=== PATIENT | female | born 1980 | race Caucasian/White ===

== ENCOUNTER 2024-02-25 15:34 | Emergency (ER) | payer MEDICAID ==
[2024-02-25] MEDS: Ketorolac 15 MG/ML SDV IVPUSH ONE (16:33)
[2024-02-25 16:34] LABS: BASOPHILS ABSOLUTE AUTO 0.05 K/uL (0.00-0.10); BASOPHILS PERCENT AUTO 0.7 % (0.1-1.3); EOSINOPHILS ABSOLUTE AUTO 0.15 K/uL (0.00-0.40); EOSINOPHILS PERCENT AUTO 2.2 % (0.0-5.4); HEMATOCRIT 39.8 % (34.3-46.0); HEMOGLOBIN 14.3 g/dL (11.2-15.5); IMMATURE GRAN ABSOLUTE AUTO 0.03 K/uL (0.00-0.23); IMMATURE GRAN PERCENT AUTO 0.4 % (0.0-0.7); LYMPHOCYTES ABSOLUTE AUTO 1.76 K/uL (0.8-3.3); MEAN CORPUSCULAR HEMOGLOBIN 31.8 pg (31.6-35.5); MEAN CORPUSCULAR HGB CONC 35.9 g/dL (31.6-35.5); MEAN CORPUSCULAR VOLUME 88.6 fL (81.4-99.0); MONOCYTES ABSOLUTE AUTO 0.48 K/uL (0.20-0.90); MONOCYTES PERCENT AUTO 7.1 % (3.3-12.6); NEUTROPHILS ABSOLUTE AUTO 4.29 K/uL (1.0-7.6); NEUTROPHILS PERCENT AUTO 63.6 % (40.0-78.1); PLATELET COUNT,PLT 203 K/uL (130-375); RED BLOOD CELL COUNT 4.49 M/uL (3.77-5.24); WHITE BLOOD CELL COUNT,WBC 6.8 K/uL (3.2-11.0)
[2024-02-25] MEDS: Sodium Chloride 0.9% 10 ML Syringe FLUSH PRN (16:34)
[2024-02-25 16:56] LABS: A/G RATIO 1.2 (1.2-2.2); ALANINE AMINOTRANSFERASE,ALT 27 U/L (12-78); ALBUMIN 3.9 g/dL (3.4-5.0); ALKALINE PHOSPHATASE 42 U/L (46-116); ANION GAP 9.3 mmol/L (5.0-14.0); ASPARTATE AMNIOTRANSFERASE,AST 29 U/L (15-37); BLOOD UREA NITROGEN,BUN 16 mg/dL (7-18); CALCIUM 9.2 mg/dL (8.5-10.1); CARBON DIOXIDE,CO2 28 mmol/L (21-32); CHLORIDE,CL 104 mmol/L (100-108); CREATININE 0.8 mg/dL (0.6-1.0); EST CRCL DRUG DOSING (CG) 81.59 mL/min; ESTIMATED GFR 94 mL/min (>60); GLUCOSE RANDOM 84 mg/dL (74-106); MAGNESIUM 1.9 mg/dL (1.8-2.4); POTASSIUM,K 4.1 mmol/L (3.6-5.2); PROTEIN TOTAL,TP 7.2 g/dL (6.4-8.2); SODIUM,NA 141 mmol/L (140-148)
[2024-02-25 16:57] LABS: C-REACTIVE PROTEIN < 0.50 mg/dL (<0.50); TROPONIN I HIGH SENSITIVITY 96.3 pg/mL (<=60.3)
[2024-02-25 17:44] LABS: APPEARANCE,URINE SLIGHTLY CLOUDY (CLEAR); BILIRUBIN,URINE NEGATIVE (NEGATIVE); COLOR,URINE YELLOW (YELLOW); GLUCOSE,URINE NEGATIVE (NEGATIVE); KETONES,URINE NEGATIVE (NEGATIVE); LEUKOCYTE ESTERASE,URINE NEGATIVE (NEGATIVE); NITRITE,URINE NEGATIVE (NEGATIVE); OCCULT BLOOD,URINE TRACE-INTACT (NEGATIVE); PH,URINE 5.5 (5.0-8.0); PROTEIN,URINE NEGATIVE (NEGATIVE); UROBILINOGEN,URINE 0.2 EU/dL (0.2-1.0)
[2024-02-25 17:48] LABS: AMPHETAMINES SCREEN, URINE NEGATIVE (NEGATIVE); BARBITURATE SCREEN,URINE NEGATIVE (NEGATIVE); BENZODIAZEPINES SCREEN,URINE NEGATIVE (NEGATIVE); METHADONE SCREEN, URINE NEGATIVE (NEGATIVE); METHAMPHETAMINES SCREEN, URINE NEGATIVE (NEGATIVE); OXYCODONE SCREEN,URINE NEGATIVE (NEGATIVE); PROPOXYPHENE SCREEN,URINE NEGATIVE (NEGATIVE); THC SCREEN,URINE 50 NG/ML PRESUMPTIVE POSITIVE (NEGATIVE)
[2024-02-25 17:49] LABS: AMORPHOUS SEDIMENT,URINE NOT SEEN; RBC,URINE 0-5 (0-5); WBC,URINE 0-5 (0-5)
[2024-02-25 17:50] LABS: BACTERIA,URINE RARE; EPITHELIAL CELLS,URINE MODERATE; MUCUS,URINE MODERATE
[2024-02-25] MEDS: Iopamidol 755 Mg/ML 100 ML Bottle IV ONE (19:22)
[2024-02-25] MEDS: Sodium Chloride 0.9% 100 ML IV ONE (19:22)
[2024-02-25] MEDS: Sodium Chloride 0.9% 10 ML Syringe FLUSH ONE (19:22)
[2024-02-25] MEDS: Ketorolac 30 MG/ML SDV IVPUSH ONE (21:38)
== END 2024-02-25 22:00 | disposition home or self-care (01) ==
LOC: JP.ED 15:34
DX: S60.211A Contusion of right wrist, initial encounter (principal); S30.0XXA Contusion of lower back and pelvis, initial encounter; I25.2 Old myocardial infarction; F17.210 Nicotine dependence, cigarettes, uncomplicated; Z91.040 Latex allergy status; Z91.011 Allergy to milk products; Z88.8 Allergy status to other drugs, medicaments and biological substances; Z86.16 Personal history of COVID-19; Z79.899 Other long term (current) drug therapy; Z90.49 Acquired absence of other specified parts of digestive tract; Z90.710 Acquired absence of both cervix and uterus; W01.0XXA Fall on same level from slipping, tripping and stumbling without subsequent striking against object, initial encounter; Y93.01 Activity, walking, marching and hiking
CPT/HCPCS: 36415; 71046; 71275; 72100; 73110; 80053; 80305; 80307; 81001; 83735; 84484; 85025; 85379; 86140; 93005; 93010; 96374; 96376; 99284; J1885; J3490; Q9967

== ENCOUNTER 2024-03-03 11:22 | Emergency (ER) | payer SELFPAY ==
[2024-03-03 11:48] LABS: BASOPHILS ABSOLUTE AUTO 0.06 K/uL (0.00-0.10); BASOPHILS PERCENT AUTO 0.5 % (0.1-1.3); EOSINOPHILS ABSOLUTE AUTO 0.16 K/uL (0.00-0.40); EOSINOPHILS PERCENT AUTO 1.4 % (0.0-5.4); HEMATOCRIT 40.4 % (34.3-46.0); HEMOGLOBIN 14.3 g/dL (11.2-15.5); IMMATURE GRAN ABSOLUTE AUTO 0.08 K/uL (0.00-0.23); IMMATURE GRAN PERCENT AUTO 0.7 % (0.0-0.7); LYMPHOCYTES ABSOLUTE AUTO 4.29 K/uL (0.8-3.3); LYMPHOCYTES PERCENT AUTO 37.6 % (11.4-47.7); MEAN CORPUSCULAR HEMOGLOBIN 31.6 pg (31.6-35.5); MEAN CORPUSCULAR HGB CONC 35.4 g/dL (31.6-35.5); MEAN CORPUSCULAR VOLUME 89.2 fL (81.4-99.0); MONOCYTES ABSOLUTE AUTO 0.86 K/uL (0.20-0.90); MONOCYTES PERCENT AUTO 7.5 % (3.3-12.6); NEUTROPHILS ABSOLUTE AUTO 5.95 K/uL (1.0-7.6); NEUTROPHILS PERCENT AUTO 52.3 % (40.0-78.1); PLATELET COUNT,PLT 261 K/uL (130-375); RED BLOOD CELL COUNT 4.53 M/uL (3.77-5.24); WHITE BLOOD CELL COUNT,WBC 11.4 K/uL (3.2-11.0)
[2024-03-03] MEDS: Aspirin 81 MG Tab.Chew PO ONE (11:50)
[2024-03-03] MEDS: Nitroglycerin 0.4 MG Tab.SL SL PRN (11:51)
[2024-03-03 12:10] LABS: A/G RATIO 1.1 (1.2-2.2); ALANINE AMINOTRANSFERASE,ALT 32 U/L (12-78); ALBUMIN 3.9 g/dL (3.4-5.0); ALKALINE PHOSPHATASE 48 U/L (46-116); ANION GAP 11.2 mmol/L (5.0-14.0); ASPARTATE AMNIOTRANSFERASE,AST 19 U/L (15-37); BILIRUBIN TOTAL 0.5 mg/dL (0.2-1.0); BLOOD UREA NITROGEN,BUN 13 mg/dL (7-18); CALCIUM 9.2 mg/dL (8.5-10.1); CARBON DIOXIDE,CO2 27 mmol/L (21-32); CHLORIDE,CL 103 mmol/L (100-108); EST CRCL DRUG DOSING (CG) 65.27 mL/min; ESTIMATED GFR 72 mL/min (>60); GLUCOSE RANDOM 105 mg/dL (74-106); MAGNESIUM 1.9 mg/dL (1.8-2.4); PHOSPHORUS 4.7 mg/dL (2.5-4.9); POTASSIUM,K 3.9 mmol/L (3.6-5.2); PRO B-TYPE NATRIUR PEPT,BNPPRO 2496 pg/mL (5-125); PROTEIN TOTAL,TP 7.3 g/dL (6.4-8.2); SODIUM,NA 141 mmol/L (140-148)
[2024-03-03 12:24] LABS: BASE EXCESS ARTERIAL 1.2 mm/L; CARBOXYHEMOGLOBIN 1.9 % (0.0-1.6); METHEMOGLOBIN 0.8 %; OXYHEMOGLOBIN 92.4 %; PCO2 ARTERIAL 43.4 mmHg (35.0-42.0); PO2 ARTERIAL 80.4 mmHg (75.0-100.0); TOTAL HEMOGLOBIN 17.1 g/dL (12.0-16.0)
[2024-03-03 12:25] LABS: INR 0.9; PROTHROMBIN TIME 9.1 sec (9.2-10.6); PTT,PARTIAL THROMBOPLSTIN TIME 22.5 sec (21.8-27.3)
[2024-03-03 12:51] LABS: APPEARANCE,URINE SLIGHTLY CLOUDY (CLEAR); BILIRUBIN,URINE NEGATIVE (NEGATIVE); COLOR,URINE YELLOW (YELLOW); GLUCOSE,URINE NEGATIVE (NEGATIVE); KETONES,URINE NEGATIVE (NEGATIVE); LEUKOCYTE ESTERASE,URINE NEGATIVE (NEGATIVE); NITRITE,URINE NEGATIVE (NEGATIVE); OCCULT BLOOD,URINE NEGATIVE (NEGATIVE); PROTEIN,URINE NEGATIVE (NEGATIVE); UROBILINOGEN,URINE 0.2 EU/dL (0.2-1.0)
[2024-03-03] MEDS ORDERED: Ticagrelor 90 MG Tab PO ONE (12:58)
[2024-03-03] MEDS ORDERED: Sodium Chloride 0.9% 1,000 ML IV SCH (13:00)
[2024-03-03 13:24] LABS: BACTERIA,URINE NOT SEEN; EPITHELIAL CELLS,URINE FEW; RBC,URINE 0-5 (0-5); WBC,URINE 0-5 (0-5)
[2024-03-03 13:25] LABS: AMORPHOUS SEDIMENT,URINE NOT SEEN; AMPHETAMINES SCREEN, URINE NEGATIVE (NEGATIVE); BARBITURATE SCREEN,URINE NEGATIVE (NEGATIVE); BENZODIAZEPINES SCREEN,URINE NEGATIVE (NEGATIVE); METHADONE SCREEN, URINE NEGATIVE (NEGATIVE); METHAMPHETAMINES SCREEN, URINE NEGATIVE (NEGATIVE); MUCUS,URINE FEW; OXYCODONE SCREEN,URINE NEGATIVE (NEGATIVE); PROPOXYPHENE SCREEN,URINE NEGATIVE (NEGATIVE); THC SCREEN,URINE 50 NG/ML PRESUMPTIVE POSITIVE (NEGATIVE)
== END 2024-03-03 15:10 ==
LOC: JP.ED 11:22
DX: I21.4 Non-ST elevation (NSTEMI) myocardial infarction (principal); I50.9 Heart failure, unspecified; I25.2 Old myocardial infarction; F17.200 Nicotine dependence, unspecified, uncomplicated; Z88.8 Allergy status to other drugs, medicaments and biological substances; Z91.040 Latex allergy status; Z91.011 Allergy to milk products; Z86.19 Personal history of other infectious and parasitic diseases; Z86.16 Personal history of COVID-19
CPT/HCPCS: 36415; 36600; 71045; 80053; 80305; 80307; 81001; 82803; 83605; 83690; 83735; 83880; 84100; 84484; 85025; 85379; 85610; 85730; 99285; A9270; 93005; 93010

== ENCOUNTER 2024-07-19 19:36 | Emergency (ER) | payer MEDICAID ==
[2024-07-19] MEDS: Lidocaine 1% with EPINEPHrine 1:100,000 50 ML MDV SUBCUT STA (20:20)
== END 2024-07-19 20:30 | disposition home or self-care (01) ==
LOC: JP.ED 19:36
DX: L76.22 Postprocedural hemorrhage of skin and subcutaneous tissue following other procedure (principal); S21.112D Laceration without foreign body of left front wall of thorax without penetration into thoracic cavity, subsequent encounter; I50.9 Heart failure, unspecified; I25.2 Old myocardial infarction; F17.210 Nicotine dependence, cigarettes, uncomplicated; Z86.16 Personal history of COVID-19; Z79.82 Long term (current) use of aspirin; Z79.899 Other long term (current) drug therapy; Z88.8 Allergy status to other drugs, medicaments and biological substances; Z91.011 Allergy to milk products; Z91.040 Latex allergy status
CPT/HCPCS: 12001; 99283

== ENCOUNTER 2024-08-02 09:54 | Emergency (ER) | payer MEDICAID | END 2024-08-02 11:24 | disposition home or self-care (01) | LOC: JP.ED 09:54 | DX: L23.1 Allergic contact dermatitis due to adhesives (principal); I50.9 Heart failure, unspecified; I25.2 Old myocardial infarction; Z86.16 Personal history of COVID-19; Z87.891 Personal history of nicotine dependence; Z79.82 Long term (current) use of aspirin; Z79.899 Other long term (current) drug therapy; Z88.8 Allergy status to other drugs, medicaments and biological substances; Z91.011 Allergy to milk products; Z91.040 Latex allergy status | CPT/HCPCS: 99283 ==

== ENCOUNTER 2024-09-07 07:46 | Day surgery (SDC) | payer MEDICAID ==
[2024-09-07] MEDS ORDERED: fentaNYL 100 MCG/2 ML SDV ONE (08:58)
[2024-09-07] MEDS ORDERED: Propofol 200 MG/20 ML SDV ONE ×2 (08:58→09:49)
[2024-09-07] MEDS ORDERED: Midazolam 1 MG/ML 2 ML SDV ONE (08:58)
[2024-09-07] MEDS: Sodium Chloride 0.9% 1,000 ML IV SCH (09:07)
[2024-09-07] MEDS: ceFAZolin 2 GM in Premix Bag 1 BAG IV ONE (09:36)
[2024-09-07] MEDS: Bupivacaine 0.5% 50 ML MDV ONE (10:00)
[2024-09-07] MEDS: Lidocaine 1% with EPINEPHrine 1:100,000 50 ML MDV ONE (10:00)
== END 2024-09-07 11:35 | disposition home or self-care (01) ==
LOC: JP.SDS 07:46
PROVIDERS: ATTEND Surgery
DX: S21.102A Unspecified open wound of left front wall of thorax without penetration into thoracic cavity, initial encounter (principal); L90.5 Scar conditions and fibrosis of skin; I96 Gangrene, not elsewhere classified; F17.200 Nicotine dependence, unspecified, uncomplicated; Z88.8 Allergy status to other drugs, medicaments and biological substances; Z79.82 Long term (current) use of aspirin
CPT/HCPCS: 00400; 20101; 87070; 87075; 87077; 87186; 87205; 88304; J0665; J0690; J2250; J2704; J3010; J7030